=== PATIENT | female | born 1955 | race Caucasian/White ===

== ENCOUNTER 2019-06-22 13:53 | Inpatient (IN) | payer OTHER ==
[~2019-06-22] VITALS: Ht 170.2 cm; Wt 99.8 kg
[2019-06-22 16:22] VITALS: BP 151/63
[2019-06-22] MEDS: IV NORMAL SALINE 1000ML BAG 1,000 ML IV SCH (16:30)
[2019-06-22] MEDS ORDERED: PANTOPRAZOLE IV PUSH 40 MG VIAL. IVP SCH (17:00)
[2019-06-22] MEDS ORDERED: FLUO40CA2 PO (18:11)
[2019-06-22] MEDS ORDERED: SIMV20TA3 PO (18:11)
[2019-06-22] MEDS ORDERED: MORP30TA3 PO (18:11)
[2019-06-22] MEDS ORDERED: MIRT30TA3 PO (18:11)
[2019-06-22] MEDS ORDERED: GABA600T7 PO (18:11)
[2019-06-22] MEDS ORDERED: SUMA50TA3 PO (18:11)
[2019-06-22] MEDS ORDERED: CHOL500016 PO (18:11)
[2019-06-22] MEDS ORDERED: CLON0.1T PO (18:11)
[2019-06-22] MEDS ORDERED: LEVO75TA5 PO (18:11)
[2019-06-22] MEDS ORDERED: BUDE10.2 IH (18:11)
[2019-06-22] MEDS ORDERED: FERR325T14 PO (18:11)
[2019-06-22] MEDS ORDERED: KETO5DRO4 EACHEYE (18:11)
[2019-06-22] MEDS ORDERED: FOLI1TAB16 PO (18:11)
[2019-06-22] MEDS ORDERED: FLUT16SP NS (18:11)
[2019-06-22] MEDS ORDERED: OXYB5TAB7 PO (18:11)
[2019-06-22] MEDS ORDERED: AMLO5TAB10 PO (18:11)
[2019-06-22] MEDS ORDERED: SUMAtriptan SUCCINATE 25 MG TABLET PO PRN (18:30)
[2019-06-22 19:25] VITALS: BP 121/48
[2019-06-22 20:01] LABS: BASO # 0.1 x10^3/uL (0.0-0.2); BASO % 1 % (0-3); EOS # 0.1 x10^3/uL (0.0-0.7); EOS % 1 % (0-3); HEMATOCRIT 36.5 % (36.0-47.0); HEMOGLOBIN 12.4 g/dL (12.0-15.5); LYMPH # 2.8 x10^3/uL (1.0-4.8); LYMPH % 28 % (24-48); MEAN CORPUSCULAR HEMOGLOBIN 29 pg (25-35); MEAN CORPUSCULAR HGB CONC 34 g/dL (31-37); MEAN CORPUSCULAR VOLUME 84 fL (79-100); MONO # 0.6 x10^3/uL (0.0-1.1); MONO % 6 % (0-9); NEUT # 6.3 x10^3/uL (1.8-7.7); NEUT % 63 % (31-73); PLATELET COUNT 233 x10^3/uL (140-400); RED BLOOD COUNT 4.32 x10^6/uL (3.50-5.40); RED CELL DISTRIBUTION WIDTH 13.7 % (11.5-14.5)
[2019-06-22 20:20] LABS: CALCIUM 8.8 mg/dL (8.5-10.1); GFR 56.2; POTASSIUM 3.9 mmol/L (3.5-5.1)
[2019-06-22] MEDS: GABAPENTIN 300 MG CAPSULE. PO SCH (20:53)
[2019-06-22] MEDS: MIRTAZAPINE 15 MG TABLET PO SCH (20:54)
[2019-06-22] MEDS: MORPHINE IR 15 MG TABLET PO PRN (20:54)
[2019-06-22] MEDS: SIMVASTATIN 20 MG TABLET PO SCH (20:54)
[2019-06-22] MEDS: cloNIDine HCL 0.1 MG TABLET PO SCH (20:54)
[2019-06-22] MEDS ORDERED: NON FORMULARY ITEM (Budesonide/Formoterol Fumarate (Symbicort 160-4.5 Mcg Inhaler) 2 PUFF) IH SCH (21:00)
[2019-06-22] MEDS ORDERED: KETOTIFEN FUMARATE 0.025% OPHTH SOLUTION BOTTLE. OU PRN (21:00)
[2019-06-22] MEDS: ALBUTEROL SULFATE 2.5 MG/3 ML NEBU. NEB SCH (21:46)
[2019-06-22] MEDS: BUDESONIDE 0.5 MG/2 ML NEBU. NEB SCH (21:46)
[2019-06-22 23:25] VITALS: BP 120/58
--- NOTE | 2019-06-22 23:52 | NUR ---
Pt's skin red and swollen from tele patches. Patches relocated but still causing irritation. Tele monitor removed for now. Will page Dr Snyder in a.m. to see if tele monitor still necessary.
[2019-06-23 03:30] VITALS: BP 120/58
[2019-06-23] MEDS: LEVOTHYROXINE 75 MCG TABLET PO SCH (06:00)
[2019-06-23 07:00] VITALS: BP 126/78
[2019-06-23] MEDS: BUDESONIDE 0.5 MG/2 ML NEBU. NEB SCH ×2 (07:19→21:21)
[2019-06-23] MEDS: ALBUTEROL SULFATE 2.5 MG/3 ML NEBU. NEB SCH ×4 (07:19→21:22)
[2019-06-23 07:52] LABS: CALCIUM 8.5 mg/dL (8.5-10.1); GFR 56.2; POTASSIUM 4.2 mmol/L (3.5-5.1)
[2019-06-23 08:10] LABS: BASO % 1 % (0-3); EOS # 0.1 x10^3/uL (0.0-0.7); EOS % 1 % (0-3); HEMATOCRIT 35.7 % (36.0-47.0); HEMOGLOBIN 11.9 g/dL (12.0-15.5); LYMPH # 2.2 x10^3/uL (1.0-4.8); LYMPH % 27 % (24-48); MEAN CORPUSCULAR HEMOGLOBIN 29 pg (25-35); MEAN CORPUSCULAR HGB CONC 33 g/dL (31-37); MEAN CORPUSCULAR VOLUME 86 fL (79-100); MONO # 0.4 x10^3/uL (0.0-1.1); MONO % 6 % (0-9); NEUT # 5.3 x10^3/uL (1.8-7.7); NEUT % 66 % (31-73); PLATELET COUNT 238 x10^3/uL (140-400); RED BLOOD COUNT 4.16 x10^6/uL (3.50-5.40); RED CELL DISTRIBUTION WIDTH 13.9 % (11.5-14.5)
--- NOTE | 2019-06-23 09:29 | PDOC2 ---
GI CONSULT Reason For Consult: GIB HPI: HPI: Friendly 64 y/o female sent to [facility] from [facility]. Yesterday morning while making cheesecake, felt urge to stool w/ mild lower abd cramping. Passed red blood w/ "cream-colored" stool. Then had four stools throughout the day without blood. Now just passing gas. Cramping no longer an issue. Similar issue in 03/2019 (though more bleeding then). Had a colonoscopy and EGD at [place] in [place] - recalls only normal findings but "they put a staple in my colon." On Eliquis since 09/2018 for h/o PE. Denies GERD but does take pantoprazole QD. No dysphagia, n/v, diarrhea, constipation, or melena. Takes Dulcolax BID. Good appetite, weight stable. Takes morphine for chronic back pain. No NSAIDs. H/o C Diff treated w/ vanco. S/p cholecystectomy for stones. No liver, pancreas, or PUD history. PMH: PMH: CVA, HTN, COPD, PE, headaches, hypothyroidism, depression/anxiety, MRSA left hip, C Diff, diverticulosis cholecystectomy, hysterectomy, appendectomy, back surgeries FH: Family History: Cancer (liver and brain - father), Other ( COPD) Social History: Smoke: <1 pack per day ALCOHOL: none Drugs: Marijuana (only when she travels to [place]) ROS: GEN: Denies fevers, chills, sweats HEENT: Denies blurred vision, sore throat CV: Denies chest pain RESP: Denies shortness of air, cough GI: Per HPI : Denies hematuria, dysuria ENDO: Denies weight changes NEURO: Denies confusion, dizziness MSK: Denies weakness, joint pain/swelling SKIN: Denies jaundice, pruritus Vitals: Vitals: Vital Signs Date Time Temp Pulse Resp B/P (MAP) Pulse Ox O2 Delivery O2 Flow Rate FiO2 06/23/19 07:19 93 Room Air 06/23/19 07:00 98.4 74 16 126/78 (94) 98.4 Labs: Labs: Laboratory Tests Test 06/22/19 19:45 06/23/19 03:45 White Blood Count 10.0 x10^3/uL (4.0-11.0) 8.0 x10^3/uL (4.0-11.0) Red Blood Count 4.32 x10^6/uL (3.50-5.40) 4.16 x10^6/uL (3.50-5.40) Hemoglobin 12.4 g/dL (12.0-15.5) 11.9 g/dL (12.0-15.5) Hematocrit 36.5 % (36.0-47.0) 35.7 % (36.0-47.0) Mean Corpuscular Volume 84 fL (79-100) 86 fL (79-100) Mean Corpuscular Hemoglobin 29 pg (25-35) 29 pg (25-35) Mean Corpuscular Hemoglobin Concent 34 g/dL (31-37) 33 g/dL (31-37) Red Cell Distribution Width 13.7 % (11.5-14.5) 13.9 % (11.5-14.5) Platelet Count 233 x10^3/uL (140-400) 238 x10^3/uL (140-400) Neutrophils (%) (Auto) 63 % (31-73) 66 % (31-73) Lymphocytes (%) (Auto) 28 % (24-48) 27 % (24-48) Monocytes (%) (Auto) 6 % (0-9) 6 % (0-9) Eosinophils (%) (Auto) 1 % (0-3) 1 % (0-3) Basophils (%) (Auto) 1 % (0-3) 1 % (0-3) Neutrophils # (Auto) 6.3 x10^3/uL (1.8-7.7) 5.3 x10^3/uL (1.8-7.7) Lymphocytes # (Auto) 2.8 x10^3/uL (1.0-4.8) 2.2 x10^3/uL (1.0-4.8) Monocytes # (Auto) 0.6 x10^3/uL (0.0-1.1) 0.4 x10^3/uL (0.0-1.1) Eosinophils # (Auto) 0.1 x10^3/uL (0.0-0.7) 0.1 x10^3/uL (0.0-0.7) Basophils # (Auto) 0.1 x10^3/uL (0.0-0.2) 0.0 x10^3/uL (0.0-0.2) Sodium Level 140 mmol/L (136-145) 141 mmol/L (136-145) Potassium Level 3.9 mmol/L (3.5-5.1) 4.2 mmol/L (3.5-5.1) Chloride Level 104 mmol/L (98-107) 105 mmol/L (98-107) Carbon Dioxide Level 26 mmol/L (21-32) 23 mmol/L (21-32) Anion Gap 10 (6-14) 13 (6-14) Blood Urea Nitrogen 9 mg/dL (7-20) 10 mg/dL (7-20) Creatinine 1.0 mg/dL (0.6-1.0) 1.0 mg/dL (0.6-1.0) Estimated GFR (Cockcroft-Gault) 56.2 56.2 Glucose Level 92 mg/dL (70-99) 109 mg/dL (70-99) Calcium Level 8.8 mg/dL (8.5-10.1) 8.5 mg/dL (8.5-10.1) Allergies: Coded Allergies: No Known Drug Allergies (Unverified , 06/22/19) Medications: Current Medications Medications (Trade) Dose Ordered Sig/Óscar Route PRN Reason Start Time Stop Time Status Last Admin Dose Admin Pantoprazole Sodium (PROTONIX VIAL for IV PUSH) 40 mg DAILYAC IVP 06/22/19 17:00 06/22/19 17:00 Sodium Chloride 1,000 ml @ 100 mls/hr Q10H IV 06/22/19 16:30 06/22/19 16:30 Clonidine HCl (Catapres) 0.1 mg QHS PO 06/22/19 21:00 06/22/19 20:54 Morphine Sulfate (Morphine Ir) 60 mg PRN Q8HRS PRN PO SEVERE PAIN 06/22/19 18:30 06/22/19 20:54 Gabapentin (Neurontin) 900 mg BID PO 06/22/19 21:00 06/22/19 20:53 Mirtazapine (Remeron) 30 mg QHS PO 06/22/19 21:00 06/22/19 20:54 Simvastatin (Zocor) 20 mg HS PO 06/22/19 21:00 06/22/19 20:54 Budesonide (Pulmicort) 0.5 mg RTBID NEB 06/22/19 20:00 06/23/19 08:11 Albuterol Sulfate (Ventolin Neb Soln) 2.5 mg RTQID NEB 06/22/19 20:00 06/23/19 08:11 Imaging: Imaging: From [facility] - CT A/P w/o contrast showed distal diverticulosis, mild hepatomegaly, and biliary ductal dilatation post cholecystectomy. PE: GEN: NAD HEENT: Atraumatic, PERRL LUNGS: CTAB HEART: RRR ABD: NABS, S/ND/NT EXTREMITY: No edema SKIN: No rashes, no jaundice NEURO/PSYCH: A & O �3 A/P: A/P: Rectal bleeding x 1, h/o same earlier this year CRC screen - UTD (in [place] 03/2019) Diverticulosis S/p cholecystectomy H/o C Diff H/o PE on Eliquis Chronic back pain on morphine -- Slightly below normal Hgb on third check w/ normal BUN and no further bleeding. ADAT, change to PO PPI. ANAIS EDWARDS Jun 23, 2019 09:29
[2019-06-23] MEDS: FERROUS SULFATE 325 MG TABLET. PO SCH (09:36)
[2019-06-23] MEDS: FOLIC ACID 1 MG TABLET. PO SCH (09:37)
[2019-06-23] MEDS: amLODIPine BESYLATE 5 MG TABLET PO SCH (09:37)
[2019-06-23] MEDS: OXYBUTYNIN CHLORIDE 5 MG TABLET PO SCH (09:37)
[2019-06-23] MEDS: GABAPENTIN 300 MG CAPSULE. PO SCH ×2 (09:37→21:04)
[2019-06-23] MEDS: CHOLECALCIFEROL (VITAMIN D3) 5,000 UNIT CAPSULE PO SCH ×2 (09:38→21:04)
[2019-06-23] MEDS: FLUoxetine HCL 20 MG CAPSULE PO SCH (09:38)
[2019-06-23] MEDS: IV NORMAL SALINE 1000ML BAG 1,000 ML IV SCH ×3 (09:40→21:05)
[2019-06-23] MEDS: MORPHINE IR 15 MG TABLET PO PRN ×2 (09:41→18:05)
--- NOTE | 2019-06-23 09:50 | NUR ---
[facility].
[2019-06-23] MEDS: PANTOPRAZOLE 40 MG TABLET.DR. PO SCH (10:00)
[2019-06-23 11:00] VITALS: BP 139/65
--- NOTE | 2019-06-23 11:02 | NUR ---
Non-admin PO protonix as IV protonix was given.
[2019-06-23] MEDS: FLUTICASONE 50MCG/NASAL SPRAY 16GM BOTTLE. NS SCH (11:05)
--- NOTE | 2019-06-23 12:16 | NUR ---
SW following pt for dc planning. Chart reviewed and discussed with RN. Pt lives at home, GI following. No Dc instruction noted at this time. Will continue to follow pending dc needs.
[2019-06-23] MEDS: diphenhydrAMINE 50 MG/ML VIAL IVP PRN (12:17)
--- NOTE | 2019-06-23 12:50 | CONS ---
DATE OF CONSULTATION: PULMONARY CONSULTATION ATTENDING PHYSICIAN: Doug Snyder MD REASON FOR CONSULTATION: GI bleed, history of pulmonary embolism, and COPD. HISTORY OF PRESENT ILLNESS: The patient is a 64-year-old obese patient with a BMI of 36. She has history of 40 years of tobacco use, now down to 4 cigarettes a day. She also has a small pulmonary embolism in 09/2018. There was no DVT. There was a small pulmonary emboli in the right lower lobe. However, she has been kept on blood thinner since then. She was brought into the hospital with complaining of red blood in her stool. This happened at least 4 times throughout the day yesterday. She said she had similar issue in 03/2019. She had a colonoscopy and EGD at [place] and results of which are not available. She has been on Eliquis for her PE since 09/2018. The patient has smoked for 1-1/2 pack per day for 40 years, now down to 3-4 cigarettes a day. She has also CPAP, which she uses at night, but no oxygen. Denies any shortness of breath. No chest pain and no cough. No fever and no chills. She does have some nausea and some abdominal cramping earlier. She has some trace pitting edema. I have been asked to see for further evaluation. PAST MEDICAL HISTORY: Significant for history of PE; history of COPD, unknown FEV1; history of CVA, history of sleep apnea, depression, anxiety, MRSA of the left hip, C. diff, and diverticulosis. PAST SURGICAL HISTORY: Cholecystectomy, hysterectomy, appendectomy, and back surgeries. FAMILY HISTORY: Cancer. SOCIAL HISTORY: Smoked 1-1/2 pack per day for 40 years, now down to 3-4 cigarettes a day. History of marijuana only when she travels to [place]. ALLERGIES: None. MEDICATIONS: Reviewed as listed in the MRAD. Eliquis is on hold. REVIEW OF SYSTEMS: Twelve-point system obtained. Pertinent positives discussed in my history of present illness, otherwise noncontributory. All systems that were negative were reviewed as well. PHYSICAL EXAMINATION: VITAL SIGNS: Reviewed, stable. Pulse ox 96% on room air. NECK: Supple. LUNGS: Clear. CARDIOVASCULAR: Regular rate. ABDOMEN: Soft and obese. SKIN: She has some blisters on her left side of the chest from EKG pads. EXTREMITIES: Trace pitting edema. LABORATORY DATA: Reviewed. White cell count 8.0, hemoglobin 11.9 and platelets are 238. BUN and creatinine 10 and 1.0. IMPRESSION: 1. The patient with abdominal pain and cramping and now comes in with bright red blood in her stools and has likely lower gastrointestinal bleed. Gastroenterology has been following. 2. History of pulmonary embolism back in 09/2018. At that time, there was no deep vein thrombosis. Risk factors were sedentary lifestyle. She states she has few melanomas which were localized to her skin, in her right leg and right shoulder and they were completely excised. She had no surgery at the time of pulmonary embolism and no other known cancers. At this point, she said that she is more ambulatory and is working with physical therapist and I will repeat a CT angiogram and if there is no evidence of new pulmonary embolism, then anticoagulation can be discontinued, especially in the setting of a gastrointestinal bleed. 3. Chronic obstructive pulmonary disease, clinically compensated. 4. Obstructive sleep apnea/underlying obesity, on CPAP with good compliance. RECOMMENDATIONS: 1. We will obtain CTA chest. 2. We will also obtain venous Dopplers of lower extremities. 3. Follow GI recommendations. 4. Hold Eliquis until her GI bleed is resolved and may have to completely discontinue it if CT angiogram is negative. 5. Continue CPAP at bedtime. 6. Continue bronchodilators. 7. Follow hemoglobin closely. 8. Discussed with Dr. Snyder and RN. KATHLEEN JASON MD DR: BRADEN/yordy JOB#: [id number] / [id number] JS
[2019-06-23] MEDS ORDERED: CONTRAST GIVEN. MC PRN (13:15)
[2019-06-23] MEDS ORDERED: IOHEXOL 350 MG/ML 100 ML VIAL. IV ONE (13:15)
--- NOTE | 2019-06-23 13:30 | HP ---
ADMIT DATE: 06/22/2019 HISTORY OF PRESENT ILLNESS: The patient is a 64-year-old female patient, who came to the Emergency Room complaining of bright red blood per rectum that started about 2 hours prior to arrival to the Emergency Room. The patient is concerned because she has had an artery in her GI tract clamped off at the [place] in 03/2019 for similar symptoms. She is on Eliquis due to history of pulmonary embolism in 09/2018. She denies any rashes or bruises. Did complain of abdominal cramping, but denied any vaginal bleeding. Denied any dysuria. Denied any nausea or vomiting. She was evaluated in the Emergency Room. Her lab work showed that her hemoglobin was 13, hematocrit 42, which is similar to her baseline. She has had a CT scan of the abdomen and pelvis, which showed few distal colonic diverticula. There is no evidence of diverticulitis. The inferior most aspect of the rectum and anus were excluded from the field of view. She has mild hepatomegaly, biliary ductal dilatation likely due to reservoir effect, status post cholecystectomy. The patient was basically transferred to [facility] to monitor her H and H. She was continued on IV fluid and kept n.p.o. and we did consult the outsole beveler. PAST MEDICAL HISTORY: Significant for chronic obstructive pulmonary disease, hypertension, type 2 diabetes, hyperlipidemia. She did have a cerebrovascular accident affecting right middle cerebral artery territory infarct with left-sided hemiparesis with little residual neurological deficit. She has chronic kidney disease, urinary retention, did have left hip abscess from which she grew MRSA and required incision and drainage. PAST SURGICAL HISTORY: Significant for back surgery, appendectomy, tonsillectomy, cholecystectomy, total abdominal hysterectomy, bilateral salpingo-oophorectomy. She has left wrist fracture, status post reconstruction. ALLERGIES: SHE IS ALLERGIC TO ADHESIVES AND LATEX. FAMILY HISTORY: Positive for coronary artery disease. SOCIAL HISTORY: She is , lives with her . She continued to smoke 4 cigarettes a day. She smokes marijuana occasionally. She does not drink alcohol. MEDICATIONS: She is currently on following medications: She is on ferrous sulfate 325 mg once a day, apixaban 5 mg twice a day, simvastatin 20 mg at bedtime, clonidine 0.1 mg at bedtime, amlodipine besylate 5 mg daily, morphine sulfate 60 mg every 8 hours as needed, gabapentin 900 mg twice a day, fluoxetine 40 mg daily, mirtazapine 30 mg at bedtime, Imitrex 50 mg daily as needed for migraine headache. She is on furosemide 40 mg once a day. She is on Symbicort 160/4.5 mcg inhaler 2 puffs twice a day, ketotifen fumarate for Zaditor 1 drop to both eyes twice a day, Flonase 2 sprays to each nostril once a day, Protonix 40 mg once a day, conjugated estrogen 0.5 mg once a month and levothyroxine sodium 75 mcg daily, oxybutynin 5 mg daily, folic acid 1 mg once a day and cholecalciferol, vitamin D 5000 International Units twice a day. REVIEW OF SYSTEMS: As per history of present illness. PHYSICAL EXAMINATION: GENERAL: On arrival to the Emergency Room, she looked well and was clearly in no apparent respiratory distress. No pallor, jaundice, cyanosis or thyromegaly. No jugular venous distention. No limb edema. VITAL SIGNS: Her heart rate was 110, blood pressure was 130/70. Her temperature was 98.5, respiratory rate was 26 and oxygen saturation was 94% on room air. HEAD, EYES, EARS, NOSE AND THROAT: Showed normocephalic, atraumatic. NECK: Supple. HEART: Showed normal first and second heart sounds. No gallop or murmur. CHEST: Clear to auscultation. No crepitation or rhonchi. ABDOMEN: Distended, soft, nontender. No guarding or rigidity. No organomegaly. All hernial orifices intact. Bowel sounds normal. NEUROLOGIC: She was awake, alert, responding appropriately. All cranial nerves intact. She moves extremities without difficulty. She ambulates without assistance or assistive devices. LABORATORY DATA: Showed serum sodium 139, potassium 4.4, chloride 102, bicarbonate 27, anion gap of 10, BUN 9, creatinine 1, estimated GFR was 56 mL per minute. Her glucose 108, calcium was 9.3. Her prothrombin time was 9.9, INR 1, aPTT was 25. Urinalysis showed the urine was yellow, hazy with a pH of 6, specific gravity of 1.025. The urine was negative for protein, glucose, ketones. There was small amount of blood, negative for nitrite and negative for leukocyte esterase. There were 3-5 rbc's, rare wbc's, moderate amount of bacteria. Her stool for occult blood was positive. Her CT scan of the abdomen and pelvis showed that there are a few distal colonic diverticula. There is no evidence of diverticulitis. The inferior most aspect of the rectum and anus were excluded from the field of view. She has mild hepatomegaly, biliary ductal dilatation likely due to reservoir effect, status post cholecystectomy. ASSESSMENT AND PLAN: The patient was transferred to [facility] with lower gastrointestinal bleed. She was kept nothing per mouth, started on IV fluids and we consulted the outsole beveler. YURIY ANDRADE MD DR: CURT/yordy JOB#: [id number] / [id number]
[2019-06-23 15:00] VITALS: BP 132/64
[2019-06-23] MEDS ORDERED: DOCU-109 PO (15:37)
[2019-06-23] MEDS ORDERED: CLIN30GE12 TP (15:37)
[2019-06-23] MEDS ORDERED: FURO80TA72 PO (15:37)
[2019-06-23] MEDS ORDERED: ASPI81TA59 PO (15:37)
[2019-06-23] MEDS ORDERED: ACET325C5 PO (15:37)
[2019-06-23] MEDS ORDERED: PANT20TA2 PO (15:37)
[2019-06-23] MEDS ORDERED: APIX5TAB PO (15:37)
[2019-06-23] MEDS ORDERED: LEVO75TA5 PO (15:37)
[2019-06-23] MEDS ORDERED: LISI10TA2 PO (15:37)
[2019-06-23] MEDS ORDERED: FLUO40CA2 PO (15:37)
[2019-06-23] MEDS ORDERED: ALBU2.5V8 INH (15:37)
[2019-06-23] MEDS ORDERED: VALA1000 PO (15:37)
[2019-06-23] MEDS ORDERED: CYAN-25 PO (15:37)
[2019-06-23] MEDS ORDERED: CARB15DR3 EACHEYE (15:37)
[2019-06-23] MEDS ORDERED: ALBU1.25 NEB (15:37)
--- NOTE | 2019-06-23 15:52 | RAD ---
EXAM: Bilateral lower extremity venous Doppler sonogram. HISTORY: Pain and swelling. TECHNIQUE: Denson scale and color Doppler sonographic evaluation of the bilateral lower extremity veins with spectral waveform analysis was performed. FINDINGS: There is normal color flow, normal compressibility and there are normal spectral waveforms in the common femoral, superficial femoral, popliteal, and posterior tibial veins. The peroneal veins are not well seen. IMPRESSION: No Doppler evidence of lower extremity deep venous thrombosis with limited evaluation of the peroneal veins due to soft tissue edema. Electronically signed by: Yaneth Calzada MD (06/23/2019 3:49 PM) [place] [id number]
--- NOTE | 2019-06-23 17:23 | RAD ---
CT ANGIOGRAPHY CHEST History: History of pulmonary embolism. Technique: CT of the chest was performed with contrast. Maximum intensity projections coronal and sagittal reconstructions were performed. PE protocol. Exposure: One or more of the following individualized dose reduction techniques were utilized for this examination: 1. Automated exposure control 2. Adjustment of the mA and/or kV according to patient size 3. Use of iterative reconstruction technique. Contrast: 90 mL Omnipaque 350 IV contrast. Comparison: September 27, 2018 Findings: Chest: No evidence of pulmonary embolism. No aortic aneurysm. Minimal atheromatous calcification within the aortic arch. No pathologic axillary, mediastinal or hilar adenopathy. Normal heart size. Mild centrilobular emphysema. Bilateral lower lobe and right middle lobe subsegmental atelectasis. No consolidation or pleural effusion. 3 mm left upper lobe pulmonary nodule (series 3 image #54), not deftly seen previously. 2 mm left upper lobe pulmonary nodule (image #45), not definite seen previously. 3 mm right upper lobe pulmonary nodule (image #55), unchanged compared to prior. Right upper lobe anterior apical pleural-based nodule 3 mm. Upper abdomen: Prior cholecystectomy. Common bile duct is dilated measures up to 1.6 cm. Bones: No pathologic osseous lesions. Impression: 1. No evidence of pulmonary embolism. 2. Pulmonary emphysema with scattered subsegmental atelectasis. 3. Small bilateral pulmonary nodules. Recommend one-year follow-up. 4. Common bile duct dilatation status post cholecystectomy, similar compared to prior. Electronically signed by: Miguel Willson DO (06/23/2019 5:21 PM) [id number]
[2019-06-23 19:00] VITALS: BP 112/45
[2019-06-23] MEDS: MIRTAZAPINE 15 MG TABLET PO SCH (21:04)
[2019-06-23] MEDS: cloNIDine HCL 0.1 MG TABLET PO SCH (21:05)
[2019-06-23] MEDS: SIMVASTATIN 20 MG TABLET PO SCH (21:07)
[2019-06-23 23:07] VITALS: BP 97/49
[2019-06-24 03:00] VITALS: BP 99/53
[2019-06-24] MEDS: LEVOTHYROXINE 75 MCG TABLET PO SCH (05:39)
[2019-06-24 06:37] VITALS: BP 107/59
[2019-06-24] MEDS: ALBUTEROL SULFATE 2.5 MG/3 ML NEBU. NEB SCH ×2 (07:32→11:46)
[2019-06-24] MEDS: BUDESONIDE 0.5 MG/2 ML NEBU. NEB SCH (07:32)
[2019-06-24] MEDS: FLUoxetine HCL 20 MG CAPSULE PO SCH (07:57)
[2019-06-24] MEDS: FLUTICASONE 50MCG/NASAL SPRAY 16GM BOTTLE. NS SCH (07:57)
[2019-06-24] MEDS: CHOLECALCIFEROL (VITAMIN D3) 5,000 UNIT CAPSULE PO SCH (07:57)
[2019-06-24] MEDS: PANTOPRAZOLE 40 MG TABLET.DR. PO SCH (07:57)
[2019-06-24] MEDS: FERROUS SULFATE 325 MG TABLET. PO SCH (07:58)
[2019-06-24] MEDS: OXYBUTYNIN CHLORIDE 5 MG TABLET PO SCH (07:58)
[2019-06-24] MEDS: amLODIPine BESYLATE 5 MG TABLET PO SCH (07:58)
[2019-06-24] MEDS: FOLIC ACID 1 MG TABLET. PO SCH (07:58)
[2019-06-24] MEDS: GABAPENTIN 300 MG CAPSULE. PO SCH (07:58)
[2019-06-24] MEDS: IV NORMAL SALINE 1000ML BAG 1,000 ML IV SCH (07:59)
--- NOTE | 2019-06-24 09:47 | PDOC ---
PULMONARY PROGRESS NOTES Subjective NO SOA WANTS TO GO HOME Vitals Vital Signs Date Time Temp Pulse Resp B/P (MAP) Pulse Ox O2 Delivery O2 Flow Rate FiO2 06/24/19 07:59 85 146/55 06/24/19 07:32 93 Room Air 06/24/19 06:37 98.2 18 2.0 98.2 General: Alert, No acute distress Lungs: Clear Cardiovascular: S1 Abdomen: Soft Neuro Exam: Alert Extremities: Other (trace) Labs Laboratory Tests Test 06/22/19 19:45 06/23/19 03:45 White Blood Count 10.0 x10^3/uL (4.0-11.0) 8.0 x10^3/uL (4.0-11.0) Red Blood Count 4.32 x10^6/uL (3.50-5.40) 4.16 x10^6/uL (3.50-5.40) Hemoglobin 12.4 g/dL (12.0-15.5) 11.9 g/dL (12.0-15.5) Hematocrit 36.5 % (36.0-47.0) 35.7 % (36.0-47.0) Mean Corpuscular Volume 84 fL (79-100) 86 fL (79-100) Mean Corpuscular Hemoglobin 29 pg (25-35) 29 pg (25-35) Mean Corpuscular Hemoglobin Concent 34 g/dL (31-37) 33 g/dL (31-37) Red Cell Distribution Width 13.7 % (11.5-14.5) 13.9 % (11.5-14.5) Platelet Count 233 x10^3/uL (140-400) 238 x10^3/uL (140-400) Neutrophils (%) (Auto) 63 % (31-73) 66 % (31-73) Lymphocytes (%) (Auto) 28 % (24-48) 27 % (24-48) Monocytes (%) (Auto) 6 % (0-9) 6 % (0-9) Eosinophils (%) (Auto) 1 % (0-3) 1 % (0-3) Basophils (%) (Auto) 1 % (0-3) 1 % (0-3) Neutrophils # (Auto) 6.3 x10^3/uL (1.8-7.7) 5.3 x10^3/uL (1.8-7.7) Lymphocytes # (Auto) 2.8 x10^3/uL (1.0-4.8) 2.2 x10^3/uL (1.0-4.8) Monocytes # (Auto) 0.6 x10^3/uL (0.0-1.1) 0.4 x10^3/uL (0.0-1.1) Eosinophils # (Auto) 0.1 x10^3/uL (0.0-0.7) 0.1 x10^3/uL (0.0-0.7) Basophils # (Auto) 0.1 x10^3/uL (0.0-0.2) 0.0 x10^3/uL (0.0-0.2) Sodium Level 140 mmol/L (136-145) 141 mmol/L (136-145) Potassium Level 3.9 mmol/L (3.5-5.1) 4.2 mmol/L (3.5-5.1) Chloride Level 104 mmol/L (98-107) 105 mmol/L (98-107) Carbon Dioxide Level 26 mmol/L (21-32) 23 mmol/L (21-32) Anion Gap 10 (6-14) 13 (6-14) Blood Urea Nitrogen 9 mg/dL (7-20) 10 mg/dL (7-20) Creatinine 1.0 mg/dL (0.6-1.0) 1.0 mg/dL (0.6-1.0) Estimated GFR (Cockcroft-Gault) 56.2 56.2 Glucose Level 92 mg/dL (70-99) 109 mg/dL (70-99) Calcium Level 8.8 mg/dL (8.5-10.1) 8.5 mg/dL (8.5-10.1) Medications Active Scripts Medications Dose Route/Sig Max Daily Dose Days Date Category Ziana Gel (Clindamycin/Tretinoin) 30 Gm Gel..gram. 30 Gm TP BID 06/23/19 Reported Lasix (Furosemide) 80 Mg Tablet 1 Tab PO DAILY 06/23/19 Reported Levothyroxine Sodium 75 Mcg Tablet 1 Tab PO DAILY 06/23/19 Reported Valacyclovir (Valacyclovir Hcl) 1,000 Mg Tablet 1 Tab PO BID 06/23/19 Reported Vitamin B-12 (Cyanocobalamin (Vitamin B-12)) 1,000 Mcg Tablet 1 Tab PO DAILY 06/23/19 Reported Protonix (Pantoprazole Sodium) 20 Mg Tablet.dr 40 Mg PO DAILY 06/23/19 Reported Lisinopril 10 Mg Tablet 1 Tab PO DAILY 06/23/19 Reported Fluoxetine Hcl 40 Mg Capsule 40 Mg PO DAILY 06/23/19 Reported Colace (Docusate Sodium) 100 Mg Capsule 1 Cap PO BID 06/23/19 Reported Refresh Optive Eye Drops (Carboxymethylcellulos/Glycerin) 15 Ml Drops 1 Drop EACHEYE HS 06/23/19 Reported Children's Aspirin (Aspirin) 81 Mg Tab.chew 81 Mg PO DAILY 06/23/19 Reported Eliquis (Apixaban) 5 Mg Tablet 5 Mg PO BID 06/23/19 Reported Albuterol Sulfate Neb Soln (Albuterol Sulfate) 1.25 Mg/3 Ml Vial.neb 1 Vial NEB Q6HRS 06/23/19 Reported Proair Hfa (Albuterol Sulfate) 8.5 Gm Hfa.aer.ad 1 Puff INH PRN Q6HRS PRN 06/23/19 Reported Tylenol (Acetaminophen) 325 Mg Capsule 500 Mg PO PRN PRN 06/23/19 Reported Simvastatin 20 Mg Tablet 20 Mg PO HS 06/22/19 Reported Vitamin D3 (Cholecalciferol (Vitamin D3)) 5,000 Unit Tablet 5,000 Unit PO BID 06/22/19 Reported Gabapentin 600 Mg Tablet 900 Mg PO BID 06/22/19 Reported Imitrex (Sumatriptan Succinate) 50 Mg Tablet 50 Mg PO PRN PRN 06/22/19 Reported Oxybutynin Chloride 5 Mg Tablet 5 Mg PO DAILY 06/22/19 Reported Morphine Sulfate Er (Morphine Sulfate) 30 Mg Tablet.er 60 Mg PO PRN Q8HRS PRN 06/22/19 Reported Mirtazapine 30 Mg Tablet 1 Tab PO QHS 06/22/19 Reported Levothyroxine Sodium 75 Mcg Tablet 1 Tab PO DAILY07 06/22/19 Reported Zaditor (Ketotifen Fumarate) 5 Ml Drops 1 Drop EACHEYE PRN PRN 06/22/19 Reported Fluticasone Propionate Nasal Loiza (Fluticasone Propionate) 16 Gm Loiza.susp 2 Loiza NS DAILY 06/22/19 Reported Fluoxetine Hcl 40 Mg Capsule 40 Mg PO DAILY 06/22/19 Reported Folic Acid 1 Mg Tablet 1 Tab PO DAILY 06/22/19 Reported Ferrous Sulfate 325 Mg Tablet 325 Mg PO DAILY 06/22/19 Reported Clonidine Hcl 0.1 Mg Tablet 0.1 Mg PO QHS 06/22/19 Reported Symbicort 160-4.5 Mcg Inhaler (Budesonide/Formoterol Fumarate) 10.2 Gm Hfa.aer.ad 2 Puff IH BID 06/22/19 Reported Amlodipine Besylate 5 Mg Tablet 5 Mg PO DAILY 06/22/19 Reported Impression . 1. The patient with abdominal pain and cramping and now comes in with bright red blood in her stools and has likely lower gastrointestinal bleed. resolved now Gastroenterology has been following. 2. History of pulmonary embolism back in 09/2018. At that time, there was no deep vein thrombosis. Risk factors were sedentary lifestyle. She states she has few melanomas which were localized to her skin, in her right leg and right shoulder and they were completely excised. She had no surgery at the time of pulmonary embolism and no other known cancers. At this point, she said that she is more ambulatory and is working with physical therapist and repeat a CT angiogram with no evidence of new pulmonary embolism, and no DVT. anticoagulation can be discontinued, especially in the setting of a gastrointestinal bleed. 3. Chronic obstructive pulmonary disease, clinically compensated. 4. Obstructive sleep apnea/underlying obesity, on CPAP with good compliance. Plan . 1. CTA chest NEG FOR PE 2. NEG venous Dopplers of lower extremities. 3. Follow GI recommendations. 4. dc Eliquis 5. Continue CPAP at bedtime. 6. Continue bronchodilators. 7. Follow hemoglobin closely. 8. Discussed with RN. KATHLEEN JASON MD Jun 24, 2019 09:47
[2019-06-24 11:00] VITALS: BP 152/84
[2019-06-24] MEDS: diphenhydrAMINE 50 MG/ML VIAL IVP PRN (11:07)
--- NOTE | 2019-06-24 11:38 | PDOC ---
Subjective: Subjective: Passing gas but no stool or blood. Tolerating PO. Thinks she gets to go home today. Objective: Vital Signs: Vital Signs Date Time Temp Pulse Resp B/P (MAP) Pulse Ox O2 Delivery O2 Flow Rate FiO2 06/24/19 08:00 Room Air 06/24/19 07:59 85 146/55 06/24/19 07:32 93 06/24/19 06:37 98.2 18 2.0 98.2 Imaging: Chest CTA Impression: 1. No evidence of pulmonary embolism. 2. Pulmonary emphysema with scattered subsegmental atelectasis. 3. Small bilateral pulmonary nodules. Recommend one-year follow-up. 4. Common bile duct dilatation status post cholecystectomy, similar compared to prior. PE: GEN: NAD LUNGS: CTAB HEART: RRR ABD: S/ND/NT NEURO/PSYCH: A & O �3 A/P: Rectal bleeding - resolved H/o colonic AVM (and clip), diverticulosis, and hemorrhoids - scopes in 03/2019 at [place] -- DC per primary, okay per GI to resume Eliquis. ANAIS EDWARDS Jun 24, 2019 11:38
[2019-06-24 11:59] LABS: BASO % 1 % (0-3); EOS # 0.2 x10^3/uL (0.0-0.7); EOS % 2 % (0-3); HEMATOCRIT 36.2 % (36.0-47.0); HEMOGLOBIN 12.2 g/dL (12.0-15.5); LYMPH # 1.6 x10^3/uL (1.0-4.8); LYMPH % 19 % (24-48); MEAN CORPUSCULAR HEMOGLOBIN 29 pg (25-35); MEAN CORPUSCULAR HGB CONC 34 g/dL (31-37); MEAN CORPUSCULAR VOLUME 85 fL (79-100); MONO # 0.4 x10^3/uL (0.0-1.1); MONO % 5 % (0-9); NEUT # 5.9 x10^3/uL (1.8-7.7); NEUT % 73 % (31-73); PLATELET COUNT 248 x10^3/uL (140-400); RED BLOOD COUNT 4.27 x10^6/uL (3.50-5.40); RED CELL DISTRIBUTION WIDTH 13.9 % (11.5-14.5); WHITE BLOOD COUNT 8.1 x10^3/uL (4.0-11.0)
[2019-06-24 12:15] LABS: CREATININE 0.9 mg/dL (0.6-1.0); GFR 63.4; POTASSIUM 4.3 mmol/L (3.5-5.1)
--- NOTE | 2019-06-24 14:15 | NUR ---
Discharge Note: PT DISCHARGED HOME WITH SELF CARE. PT LEFT FACILITY VIA PRIVATE VEHICLE WITH AT 1410. PT ALERT AND STABLE UPON DISCHARGE. PT PIV REMOVED FROM L FA WITHOUT DIFFICULTIES BANDAGE APPLIED. PT EDUCATED ABOUT DISCHARGE MEDICATIONS, DISCHARGE INSTRUCTIONS, AND FOLLOW-UP INSTRUCTIONS, NO CONCERNS VOICED AT THIS TIME. PT LEFT WITH ALL PERSONAL BELONGINGS. MAYA JOSHUA Discharge instructions and discharge home medications reviewed with Patient and a copy given. All questions have been answered and understanding verbalized.
--- NOTE | 2019-06-24 15:21 | PN ---
DATE: 06/23/2019 SUBJECTIVE: The patient is a 64-year-old who was admitted with another episode of fresh blood per rectum. She apparently has had pulmonary emboli diagnosed in 09/2018. At that time, she was started on apixaban. Apparently, she was admitted to the [facility] where she had had endoscopy and she has been so far stable. Her H and H has not redropped dramatically, has had no further episode of fresh blood per rectum today. 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 PHYSICAL EXAMINATION: GENERAL: When I saw her today, she looked well and was clearly in no apparent respiratory distress. No pallor, jaundice, cyanosis or thyromegaly. No jugular venous distention. No limb edema. VITAL SIGNS: Her heart rate was 88, blood pressure 132/64, temperature was 99.3, respiratory rate was 18 and oxygen saturation was 93% on 2 liters of oxygen. The rest of clinical examination is stable, has not really changed. LABORATORY DATA: Her white cell count was 8000, hemoglobin 11.9, hematocrit 36, MCV 86 and platelet count of 238,000. Her chemistry showed a serum sodium 141, potassium 4.2, chloride 105, bicarbonate 23, anion gap of 13, BUN 10, creatinine 1, estimated GFR was 56 mL/min. Her glucose 109 and calcium was 8.5. ASSESSMENT AND PLAN: Lower gastrointestinal bleeding seems to have resolved. Her H and H remained stable. I did consult Dr. Mccarthy to see whether she really need to be on apixaban towards this. YURIY ANDRADE MD DR: CURT/yordy JOB#: [id number] / [id number]
== END 2019-06-24 14:18 | disposition home or self-care (01) | DRG 394 ==
LOC: 6 SOUTH 15:44 → 5 SOUTH 06-23 13:08
PROVIDERS: ADMIT Internal Medicine; ATTEND Internal Medicine
PROC: 5A09357 Assistance with Respiratory Ventilation, Less than 24 Consecutive Hours, Continuous Positive Airway Pressure (ICD-10-PCS; principal; 2019-06-22)
DX: K64.9 Unspecified hemorrhoids (principal); I69.354 Hemiplegia and hemiparesis following cerebral infarction affecting left non-dominant side; K57.30 Diverticulosis of large intestine without perforation or abscess without bleeding; J44.9 Chronic obstructive pulmonary disease, unspecified; E78.5 Hyperlipidemia, unspecified; I12.9 Hypertensive chronic kidney disease with stage 1 through stage 4 chronic kidney disease, or unspecified chronic kidney disease; N18.9 Chronic kidney disease, unspecified; F17.210 Nicotine dependence, cigarettes, uncomplicated; F12.90 Cannabis use, unspecified, uncomplicated; G89.29 Other chronic pain; E03.9 Hypothyroidism, unspecified; F41.9 Anxiety disorder, unspecified; F32.9 Major depressive disorder, single episode, unspecified; E66.9 Obesity, unspecified; G47.33 Obstructive sleep apnea (adult) (pediatric); E11.22 Type 2 diabetes mellitus with diabetic chronic kidney disease; Z79.01 Long term (current) use of anticoagulants; Z86.711 Personal history of pulmonary embolism; Z90.49 Acquired absence of other specified parts of digestive tract; Z82.49 Family history of ischemic heart disease and other diseases of the circulatory system; Z82.5 Family history of asthma and other chronic lower respiratory diseases; Z90.710 Acquired absence of both cervix and uterus; Z91.040 Latex allergy status; Z91.048 Other nonmedicinal substance allergy status; Z86.14 Personal history of Methicillin resistant Staphylococcus aureus infection; Z68.36 Body mass index [BMI] 36.0-36.9, adult
CPT/HCPCS: 36415; 71275; 80048; 85025; 93970; 94640; 94660; 94760; C9113; J1200; J7030; J7613; J7626; Q9967; G0378